=== PATIENT | female | born 1995 | race Caucasian/White ===

== ENCOUNTER 2019-12-01 16:18 | Emergency (ER) | payer MEDICAID ==
[~2019-12-01] VITALS: Ht 185.4 cm; Wt 154.2 kg
[2019-12-01] MEDS ORDERED: methylPREDNISolone SOD SUCC 125 MG/2 ML VL IV ONE (19:15)
[2019-12-01] MEDS ORDERED: ASCORBIC ACID 500 MG TAB PO ONE (19:15)
[2019-12-01] MEDS ORDERED: SODIUM CHLORIDE 0.9% 1,000 ML IV ONE (19:15)
[2019-12-01] MEDS ORDERED: DOXYCYCLINE 100 MG TAB/CAP PO ONE (19:15)
[2019-12-01] MEDS ORDERED: cefTRIAXone 1GM/50ML D5W 50 ML IV ONE (19:15)
[2019-12-01 20:48] LABS: Basophils # (auto) 0 10 ^3/uL (0-0.2); Basophils % (auto) 0.2 % (0.0-2.0); Eosinophils # (auto) 0 10 ^3/uL (0-0.8); Hematocrit 42.1 % (36.0-46.0); Hemoglobin 13.7 g/dL (12.2-16.2); Lymphocytes # (auto) 0.5 10 ^3/uL (0.4-5.4); Lymphocytes % (auto) 12.5 % (10.0-50.0); Mean Corpuscular Hemoglobin 27.5 pg (28.0-32.0); Mean Corpuscular Hgb Conc. 32.7 g/dL (32.0-36.0); Mean Corpuscular Volume 84.2 fL (80.0-100.0); Monocytes # (auto) 0.3 10 ^3/uL (0-1.3); Monocytes % (auto) 7.1 % (0.0-12.0); Neutrophils # (auto) 3.3 10 ^3/uL (1.6-8.6); Neutrophils % (auto) 80.2 % (37.0-80.0); Platelet Count (auto) 184 10^3/uL (140-450); Red Cell Distribution Width 14.1 % (11.8-14.3); White Blood Cell 4.1 10^3/uL (4.4-10.8)
[2019-12-01 21:04] LABS: Albumin 3.3 g/dL (3.4-5.0); Anion Gap 6 (5-15); Blood Urea Nitrogen 10 mg/dL (7-18); Calcium 8.5 mg/dL (8.5-10.1); Carbon Dioxide 24 mmol/L (21-32); Chloride 111 mmol/L (98-107); Potassium 3.7 mmol/L (3.5-5.1); Sodium 141 mmol/L (136-145)
[2019-12-01 21:12] LABS: Alanine Aminotransferase 30 U/L (13-56); Alkaline Phosphatase 109 U/L (45-117); Aspartate Aminotransferase 28 U/L (15-37); BUN/Creatinine Ratio 10.3; Bilirubin, Total 0.6 mg/dL (0.2-1.0); GFR African American 90 mL/min; GFR Non-African American 74 mL/min; Glucose 90 mg/dL (74-106)
[2019-12-01] MEDS ORDERED: IOHEXOL 350 MG/ML 100ML IJ ONE (23:20)
[2019-12-02 05:13] VITALS: BP 120/78
== END 2019-12-02 05:22 | disposition home or self-care (01) ==
LOC: ER 16:18
DX: U07.1 COVID-19 (principal); K76.0 Fatty (change of) liver, not elsewhere classified
CPT/HCPCS: 36415; 70450; 71045; 71260; 74177; 80053; 83880; 84443; 84484; 85025; 85379; 87426; 93005; 96365; 96375; 99285; J0696; J2930; Q9967